=== PATIENT | female | born 1980 | race Caucasian/White ===

== ENCOUNTER 2016-10-03 15:25 | Emergency (ER) | payer MEDICAID ==
[~2016-10-03] VITALS: Ht 162.6 cm; Wt 108.4 kg
[2016-10-03 15:28] VITALS: BP 119/78
[2016-10-03] MEDS ORDERED: SODIUM CHLORIDE FLUSH 10ML SYR IVF ONE (16:00)
[2016-10-03] MEDS ORDERED: SODIUM CHLORIDE 0.9% 1,000ML IVBOLUS ONE (16:00)
[2016-10-03 16:17] LABS: HEMATOCRIT 41.3 % (34.6-47.8); HEMOGLOBIN 14.1 g/dL (11.7-16.4); WHITE BLOOD COUNT 11.4 x10^3/uL (3.4-10)
[2016-10-03 16:24] LABS: BLOOD UREA NITROGEN 6 mg/dL (7-18)
[2016-10-03] MEDS ORDERED: CEFTRIAXONE 1,000 MG ONE (17:10)
[2016-10-03] MEDS ORDERED: CEFTRIAXONE 1,000 MG IM ONE (17:30)
== END 2016-10-03 17:38 | disposition home or self-care (01) ==
LOC: ED 17:18
DX: J15.9 Unspecified bacterial pneumonia (principal)
CPT/HCPCS: 36415; 71020; 80048; 82040; 83605; 85025; 87040; 93005; 96372; 99285; J0696

== ENCOUNTER 2018-05-02 11:58 | Emergency (ER) | payer MEDICAID ==
[~2018-05-02] VITALS: Ht 165.1 cm; Wt 124.2 kg
[2018-05-02 12:05] VITALS: BP 126/87
[2018-05-02] MEDS ORDERED: KETOROLAC 30 MG/1 ML IM ONE (12:30)
[2018-05-02] MEDS ORDERED: KETOROLAC 30 MG/1 ML ONE (12:39)
--- NOTE | 2018-05-02 12:45 | NUR ---
ASSUMED CARE OF PT. PT PRESENTS TO ED WITH C/O LEFT SIDED FLANK PAIN X 2 MONTHS. WAS SEEN AT [facility] ABOUT A WEEK AGO. DX WITH KIDNEY STONE. STATES CONTINUED PAIN SINCE DX. STATES NON RADIATING. MILD AMOUNT OF DISTRESS NOTED. BREATHING REGULAR AND UNLABORED. URINE SAMPLE COLLECTED AND SENT TO LAB. POC DISCUSSED. WILL CONTINUE TO MONITOR.
[2018-05-02 12:51] LABS: BASOPHILS # (AUTO) 0.05 x10^3/uL (0-0.1); BASOPHILS % (AUTO) 1 % (0-1); EOSINOPHILS # (AUTO) 0.14 x10^3/uL (0-0.4); EOSINOPHILS % (AUTO) 2 % (1-7); LYMPHOCYTES # (AUTO) 3.38 x10^3/uL (1-3.4); LYMPHOCYTES % (AUTO) 39 % (22-44); MD NO; MEAN CORPUSCULAR HEMOGLOBIN 33.6 pg (27.0-34.8); MEAN CORPUSCULAR HGB CONC 34.4 g/dL (32.4-35.8); MEAN CORPUSCULAR VOLUME 97.7 fL (80-100); MEAN PLATELET VOLUME 7.7 fL (7.4-10.4); MONOCYTES # (AUTO) 0.61 x10^3/uL (0.2-0.8); MONOCYTES % (AUTO) 7 % (2-9); NEUTROPHILS # (AUTO) 4.47 x10^3/uL (1.8-6.8); NEUTROPHILS % (AUTO) 52 % (42-75); PLATELET COUNT 258 x10^3/uL (130-400); RED BLOOD COUNT 4.66 x10^6/uL (3.82-5.3); RED CELL DISTRIBUTION WIDTH 12.2 % (9.6-15.2)
[2018-05-02 13:09] LABS: MICROSCOPIC NOT IND
[2018-05-02 13:10] LABS: CULTURE INDICATED? NO
[2018-05-02 13:26] LABS: ALANINE AMINOTRANSFERASE 43 U/L (12-78); ANION GAP 8 mmol/L (5-15); CALCIUM 8.2 mg/dL (8.5-10.1); CHLORIDE 103 mmol/L (98-107); CREATININE 1.05 mg/dL (0.55-1.02)
[2018-05-02 13:29] LABS: ALKALINE PHOSPHATASE 63 U/L (45-117); BILIRUBIN,TOTAL 0.5 mg/dL (0.2-1.0); TOTAL PROTEIN 6.8 g/dL (6.4-8.2)
== END 2018-05-02 14:13 | disposition home or self-care (01) ==
LOC: ED 14:07
DX: M54.9 Dorsalgia, unspecified (principal); R10.9 Unspecified abdominal pain; I10 Essential (primary) hypertension; F31.9 Bipolar disorder, unspecified; F17.210 Nicotine dependence, cigarettes, uncomplicated; Z90.710 Acquired absence of both cervix and uterus
CPT/HCPCS: 36415; 80053; 81003; 83690; 85025; 96372; 99283; J1885

== ENCOUNTER → 2019-03-17 | Outpatient (CLI) | payer MEDICAID | END | disposition home or self-care (01) | LOC: CFH 13:39 | PROVIDERS: ATTEND Orthopaedic Surgery | DX: M50.321 Other cervical disc degeneration at C4-C5 level (principal); M51.36 Other intervertebral disc degeneration, lumbar region | CPT/HCPCS: 72050; 72110 ==

== ENCOUNTER 2019-07-05 06:20 | Emergency (ER) | payer MEDICAID ==
[~2019-07-05] VITALS: Ht 165.1 cm; Wt 129.1 kg
--- NOTE | 2019-07-05 06:46 | NUR ---
urine collected and sent
--- NOTE | 2019-07-05 06:54 | NUR ---
REPORT RECIEVED FROM JONO POWELL.
[2019-07-05 07:07] LABS: MICROSCOPIC INDICATED
--- NOTE | 2019-07-05 07:55 | NUR ---
PT OK FOR D/C. VERBALIZED UNDERSTANDING OF D/C INSTRUCTIONS, HAS ALL OWN BELONGINGS UPON D/C.
[2019-07-05 07:56] VITALS: BP 120/78
== END 2019-07-05 07:58 | disposition home or self-care (01) ==
LOC: ED 07:43
DX: A59.01 Trichomonal vulvovaginitis (principal); B35.6 Tinea cruris; I10 Essential (primary) hypertension; F17.200 Nicotine dependence, unspecified, uncomplicated; Z90.710 Acquired absence of both cervix and uterus
CPT/HCPCS: 81001; 81025; 87086; 99283

== ENCOUNTER 2019-07-28 17:26 | Outpatient (CLI) | payer MEDICAID | END 2019-07-28 23:59 | disposition home or self-care (01) | LOC: RAD 17:26 | PROVIDERS: ATTEND Orthopaedic Surgery | DX: Z01.818 Encounter for other preprocedural examination (principal); G56.00 Carpal tunnel syndrome, unspecified upper limb | CPT/HCPCS: 71046 ==

== ENCOUNTER → 2019-07-29 | Outpatient (CLI) | payer MEDICAID | END | disposition home or self-care (01) | LOC: STAR 14:08 | PROVIDERS: ATTEND Orthopaedic Surgery | DX: Z01.818 Encounter for other preprocedural examination (principal); G56.00 Carpal tunnel syndrome, unspecified upper limb | CPT/HCPCS: 93005 ==